=== PATIENT | female | born 1985 ===

== ENCOUNTER 2021-11-25 09:53 | Outpatient (CLI) | payer OTHER | END 2021-11-25 09:54 | disposition home or self-care (01) | LOC: RX STUDY 09:53 | DX: N97.2 Female infertility of uterine origin (principal); N97.0 Female infertility associated with anovulation ==

== ENCOUNTER 2022-12-21 13:00 | Outpatient (CLI) | payer OTHER | END 2022-12-21 14:41 | disposition home or self-care (01) | LOC: NST 13:00 | PROVIDERS: ATTEND Obstetrics & Gynecology Gynecology | DX: Z34.83 Encounter for supervision of other normal pregnancy, third trimester (principal) ==

== ENCOUNTER 2022-12-27 10:36 | Inpatient (IN) | payer OTHER ==
[~2022-12-27] VITALS: Ht 165.1 cm; Wt 0.9 kg
[2022-12-27] MEDS ORDERED: PRENATAL TABLE1 EAC1 PO (12:12)
[2022-12-27] MEDS ORDERED: IRON18 MG PO (12:13)
[2022-12-27] MEDS ORDERED: VITAMIN C100 MG PO (12:14)
[2022-12-27] MEDS ORDERED: LEVOTHYROXINE25 MCG PO (12:15)
[2022-12-27] MEDS ORDERED: VISTARIL25 MG PO (12:15)
== END 2022-12-30 16:37 | disposition home or self-care (01) | DRG 786 ==
LOC: OBS/DEL 10:36 → NST 10:36 → OBS/DEL 11:17 → LDR 15:15 → OBS/DEL 15:15 → O/R 20:01 → OB/GYN 20:50
PROVIDERS: ADMIT Obstetrics & Gynecology Gynecology; ATTEND Obstetrics & Gynecology Gynecology
PROC: 4A1HXCZ Monitoring of Products of Conception, Cardiac Rate, External Approach (ICD-10-PCS; 2022-12-27)
PROC: BY4GZZZ Ultrasonography of Third Trimester, Multiple Gestation (ICD-10-PCS; 2022-12-27)
PROC: 10D00Z1 Extraction of Products of Conception, Low, Open Approach (ICD-10-PCS; principal; 2022-12-27 22:00)
DX: O32.1XX1 Maternal care for breech presentation, fetus 1 (principal); O60.14X2 Preterm labor third trimester with preterm delivery third trimester, fetus 2; O26.873 Cervical shortening, third trimester; O26.843 Uterine size-date discrepancy, third trimester; O34.13 Maternal care for benign tumor of corpus uteri, third trimester; D25.0 Submucous leiomyoma of uterus; O30.043 Twin pregnancy, dichorionic/diamniotic, third trimester; Z3A.29 29 weeks gestation of pregnancy; Z37.2 Twins, both liveborn; Z20.822 Contact with and (suspected) exposure to COVID-19